=== PATIENT | male | born 1955 | race Caucasian/White ===

== ENCOUNTER 2017-06-28 09:05 | Outpatient (CLI) | payer OTHER | END 2017-06-28 09:06 | disposition home or self-care (01) | LOC: NS 09:05 | PROVIDERS: ATTEND Internal Medicine | DX: Z71.3 Dietary counseling and surveillance (principal); E11.9 Type 2 diabetes mellitus without complications; Z68.26 Body mass index [BMI] 26.0-26.9, adult; Z79.4 Long term (current) use of insulin | CPT/HCPCS: 97802 ==

== ENCOUNTER 2017-07-03 18:51 | Outpatient (CLI) | payer OTHER ==
--- NOTE | 2017-07-04 12:05 | Ultrasound Report ---
BILATERAL LOWER EXTREMITY ARTERIAL DUPLEX: 07/03/2017 CLINICAL INDICATION: Nonhealing ulcer, right great toe. TECHNIQUE: Real-time sonographic vascular imaging was performed by the television and radio repairer through the lower extremities utilizing both color-flow and Doppler spectral analysis. Multiple termite control service representative static images were saved for review. RIGHT SIDE SITE [employer]V WAVEFORM [employer] L[employer] TEACHER 109 biphasic [] PSFA 84.4 biphasic [] MSFA 102 triphasic [] DSFA 97 triphasic [] PFA 77.7 biphasic [] POP 102 biphasic [] SOPHY 53.9 biphasic [] INSPECTOR RECEIVING 15.7 monophasic [] PER 113 biphasic [] DPA 57.5 monophasic [] LEFT SIDE SITE [employer] TEACHER 156 triphasic [] PSFA 97 biphasic [] MSFA 112 triphasic [] DSFA 114 triphasic [] PFA 134 biphasic [] POP 84 monophasic [] SOPHY 55.5 monophasic [] INSPECTOR RECEIVING 71 monophasic [] PER 79 monophasic [] DPA 34.9 monophasic [] FINDINGS RIGHT LEG: Waveforms are variable. There is no evidence of a focal velocity increase to suggest a hemodynamically significant arterial stenosis. LEFT LEG: Waveforms are predominantly triphasic in the thigh, and monophasic in the calf. There is no evidence of a focal velocity increase to suggest a hemodynamically significant arterial stenosis. IMPRESSION: VARIABLE WAVEFORMS BILATERALLY, BUT NO EVIDENCE OF A FOCAL HEMODYNAMICALLY SIGNIFICANT ARTERIAL STENOSIS. TD: 07/04/2017 10:51 MTDSelvin
== END 2017-07-03 18:52 | disposition home or self-care (01) ==
LOC: DI 18:51
PROVIDERS: ATTEND Internal Medicine
DX: L97.519 Non-pressure chronic ulcer of other part of right foot with unspecified severity (principal)
CPT/HCPCS: 93925

== ENCOUNTER 2017-07-13 08:55 | Outpatient (CLI) | payer OTHER | END 2017-07-13 08:56 | disposition home or self-care (01) | LOC: NS 08:55 | PROVIDERS: ATTEND Internal Medicine | DX: Z71.3 Dietary counseling and surveillance (principal); E11.9 Type 2 diabetes mellitus without complications; Z68.26 Body mass index [BMI] 26.0-26.9, adult | CPT/HCPCS: 97803 ==

== ENCOUNTER 2020-08-18 06:15 | Day surgery (SDC) | payer OTHER ==
[2020-08-18] MEDS ORDERED: MIDAZOLAM 2 MG/2 ML VIAL ONE ×2 (07:30)
[2020-08-18] MEDS ORDERED: fentaNYL 250 MCG/5 ML VIAL ONE (07:30)
[2020-08-18] MEDS ORDERED: LACTATED RINGERS 500 ML IV ONE (08:14)
[2020-08-18 09:00] VITALS: BP 116/68
== END 2020-08-18 06:16 | disposition home or self-care (01) ==
LOC: SDS 06:15
PROVIDERS: ATTEND Surgery
DX: Z12.11 Encounter for screening for malignant neoplasm of colon (principal); K64.8 Other hemorrhoids; K57.30 Diverticulosis of large intestine without perforation or abscess without bleeding; I10 Essential (primary) hypertension; E11.3299 Type 2 diabetes mellitus with mild nonproliferative diabetic retinopathy without macular edema, unspecified eye; E11.42 Type 2 diabetes mellitus with diabetic polyneuropathy; N40.0 Benign prostatic hyperplasia without lower urinary tract symptoms; I73.00 Raynaud's syndrome without gangrene; Z79.4 Long term (current) use of insulin; Z79.82 Long term (current) use of aspirin; Z79.899 Other long term (current) drug therapy
CPT/HCPCS: 45378; 88300; J3010; J7120

== ENCOUNTER 2021-10-21 08:00 | Outpatient (CLI) | payer OTHER ==
[2021-10-21 16:03] LABS: BASOPHILS # (AUTO) 0.1 10^3/uL (0.0-0.1); BASOPHILS % (AUTO) 1.3 %; EOSINOPHILS # (AUTO) 0.3 10^3/uL (0.0-0.7); EOSINOPHILS % (AUTO) 5.5 %; HCT - HEMATOCRIT 44.7 % (42.0-52.0); LYMPHOCYTES % (AUTO) 19.9 %; MEAN CORPUSCULAR HEMOGLOBIN 28.1 pg (27.0-31.0); MEAN CORPUSCULAR HGB CONC 31.3 g/dL (32.0-36.0); MEAN CORPUSCULAR VOLUME 89.8 fL (80.0-94.0); MEAN PLATELET VOLUME 9.4 fL (7.4-11.4); MONOCYTES # (AUTO) 0.4 10^3/uL (0.0-1.0); NEUTROPHILS # (AUTO) 3.1 10^3/uL (1.5-6.6); NEUTROPHILS % (AUTO) 65.1 %; PLT - PLATELET COUNT 305 10^3/uL (130-450); RED BLOOD COUNT 4.98 10^6/uL (4.70-6.10); RED CELL DISTRIBUTION WIDTH 14.1 % (12.0-15.0); WHITE BLOOD COUNT 4.8 x10^3/uL (4.8-10.8)
[2021-10-21 16:26] LABS: ALBUMIN 4.5 g/dL (3.2-5.5); ALBUMIN/GLOBULIN RATIO 1.6 (1.0-2.2); ALKALINE PHOSPHATASE 67 IU/L (42-121); ALT ALANINE AMINOTRANSFERASE 20 IU/L (10-60); AST ASPARTATE AMINOTRANSFERASE 14 IU/L (10-42); BILIRUBIN,TOTAL 1.4 mg/dL (0.2-1.0); BUN - BLOOD UREA NITROGEN 31 mg/dL (6-20); CALCIUM 9.5 mg/dL (8.5-10.3); CARBON DIOXIDE - CO2 24 mmol/L (21-32); CHLORIDE 98 mmol/L (101-111); CHOL/HDL RATIO 2.9 (<5.0); CHOLESTEROL 209 mg/dL; CREATININE 0.8 mg/dL (0.6-1.2); GFR - MDRD 97 (>89); GLUCOSE 167 mg/dL (70-100); HDL CHOLESTEROL 72 mg/dL; LDL CHOLESTEROL,CALCULATED 128 mg/dL; LDL/HDL RATIO 1.8 (<3.6); POTASSIUM 4.6 mmol/L (3.5-5.0); SODIUM 132 mmol/L (135-145); TOTAL PROTEIN 7.4 g/dL (6.7-8.2); TRIGLYCERIDES 45 mg/dL; VLDL CHOLESTEROL 9 mg/dL
[2021-10-21 16:27] LABS: CREATININE,URINE 55.9 mg/dL; MICROALBUM/CREATININE RATIO,UR 23.3 ug/mg (<30.0); MICROALBUMIN,URINE 1.3 mg/dL (0-300.0)
[2021-10-21 16:31] LABS: THYROID STIMULATING HORMONE 1.7 uIU/mL (0.34-5.60)
[2021-10-21 20:09] LABS: ESTIMATED AVERAGE GLUCOSE 180 mg/dL (70-100); HEMOGLOBIN A1c% 7.9 % (4.27-6.07)
== END 2021-10-21 23:59 | disposition home or self-care (01) ==
LOC: LAB.R 08:00
PROVIDERS: ATTEND Internal Medicine
DX: Z00.00 Encounter for general adult medical examination without abnormal findings (principal); N40.0 Benign prostatic hyperplasia without lower urinary tract symptoms; F32.A Depression, unspecified; E11.9 Type 2 diabetes mellitus without complications; I10 Essential (primary) hypertension; G62.9 Polyneuropathy, unspecified; E53.8 Deficiency of other specified B group vitamins
CPT/HCPCS: 80053; 80061; 82043; 82570; 82607; 83036; 83721; 84153; 84443; 85025